=== PATIENT | male | born 1955 | race Hispanic/Latino ===

== ENCOUNTER 2020-09-06 03:01 | Emergency (ER) | payer BC, SELFPAY ==
[2020-09-06 03:41] LABS: #Eosinphils 0.1 thou/uL (0.0-0.7); #Lymphocytes 1.9 thou/uL (1.20-3.40); #Monocytes 0.5 thou/uL (0.11-0.59); #Neutrophils 4.7 thou/uL (1.40-6.50); %Basophils 0.6 % (0.0-1.0); %Eosinophils 0.7 % (0.0-10.0); %Lymphocytes 26.4 % (21.0-51.0); %Monocytes 7.5 % (0.0-10.0); %Neutrophils 64.9 % (42.0-75.0); Hemoglobin 15.8 g/dL (14.0-18.0); Mean Corpuscular HGB CONC 33.8 g/dL (32.0-36.0); Mean Corpuscular Hemoglobin 30.6 pg (27.0-31.0); Mean Corpuscular Volume 90.6 fL (78.0-98.0); Mean Platelet Volume 8.2 fL (7.4-10.4); Platelet Count 198 thou/uL (130-400); RBC Distribution Width 12.6 % (11.5-14.5); Red Blood Cell (RBC) Count 5.17 mill/uL (4.70-6.10); White Blood Cell (WBC) Count 7.2 thou/uL (4.8-10.8)
[2020-09-06 03:52] LABS: Bilirubin Negative (Negative); Blood, Urine Negative (Negative); Clarity Extra Turbid (Clear); Glucose, Urine (Dipstick) Normal (Negative); Ketone, Urine 40 mg/dL (Negative); Leukocyte Negative Leu/uL (Negative); Nitrite Negative (Negative); Protein, Urine (Dipstick) 10 mg/dL (Neg-Trace); Specific Gravity, Urine 1.021 (1.002-1.036); Urobilinogen Normal mg/dL (Less than 2)
[2020-09-06 03:57] LABS: ALT (SGPT) 20 U/L (8-55); AST (SGOT) 23 U/L (5-34); Albumin 4.5 g/dL (3.4-4.8); Alkaline Phosphatase 79 U/L (40-110); Anion Gap 19 mmol/L (10-20); BUN (Urea Nitrogen) 12 mg/dL (8.4-25.7); Bilirubin, Total 0.7 mg/dL (0.2-1.2); Calc. Creatinine Clearance 0 mL/min (70-130); Calcium 9.8 mg/dL (7.8-10.44); Carbon Dioxide 16 mmol/L (23-31); Chloride 103 mmol/L (98-107); Globulin 3.9 g/dL (2.4-3.5); Glucose 121 mg/dL (80-115); Protein, Total 8.4 g/dL (5.8-8.1); Sodium 134 mmol/L (136-145)
[2020-09-06] MEDS ORDERED: Iopamidol-370 76% 500 ML 1 ML ONE (10:48)
== END 2020-09-06 05:00 | disposition home or self-care (01) ==
LOC: ERS 03:01
DX: R10.84 Generalized abdominal pain (principal)
CPT/HCPCS: 36415; 74177; 80053; 81003; 85025; Q9967